=== PATIENT | female | born 1990 | race Hispanic/Latino ===

== ENCOUNTER → 2019-04-24 | Outpatient (CLI) | payer OTHER ==
[2019-04-24 08:09] LABS: BASOPHILS % (AUTO) 0.8 % (0.0-5.0); MEAN CORPUSCULAR HEMOGLOBIN 29.1 pg (27.0-33.0); MEAN CORPUSCULAR VOLUME 88.3 fL (79-99); PLATELET COUNT (AUTO) 347 K/uL (130-400); RED BLOOD CELL COUNT(AUTO) 4.19 MIL/uL (4.00-5.50); RED CELL DISTRIBUTION WIDTH 13.1 % (11.0-15.5); WHITE BLOOD COUNT (AUTO) 6.1 K/uL (4.8-10.8)
[2019-04-24 08:15] LABS: ALBUMIN 3.6 g/dL (3.5-5.0); BILIRUBIN,TOTAL 0.6 mg/dL (0.2-1.0); CREATININE 0.7 mg/dL (0.5-1.5); POTASSIUM 3.6 mmol/L (3.5-5.1); TOTAL PROTEIN, SERUM 7.2 g/dL (6.0-8.3)
== END | disposition home or self-care (01) ==
LOC: LAB 07:27
PROVIDERS: ATTEND Pediatrics Neurodevelopmental Disabilities
DX: E55.9 Vitamin D deficiency, unspecified (principal)
CPT/HCPCS: 36415; 80053; 82306; 82542; 85025

== ENCOUNTER 2020-03-19 07:39 | Emergency (ER) | payer OTHER ==
[2020-03-19 08:18] LABS: RAPID GROUP A STREP NEGATIVE (NEGATIVE)
[2020-03-19] MEDS ORDERED: AMOXICILLIN 500 MG CAPSULE PO ONE (08:18)
[2020-03-19] MEDS ORDERED: ACETAMINOPHEN EXTRA STRENGTH 500 MG TABLET ONE (08:18)
== END 2020-03-19 09:27 | disposition home or self-care (01) ==
LOC: EDH 07:39
DX: J02.9 Acute pharyngitis, unspecified (principal); R13.10 Dysphagia, unspecified; Z20.828 Contact with and (suspected) exposure to other viral communicable diseases; Z88.0 Allergy status to penicillin; Z98.890 Other specified postprocedural states
CPT/HCPCS: 87426; 87804 ×2; 87880; 99283; U0003

== ENCOUNTER → 2020-08-01 | Outpatient (CLI) | payer OTHER | END | disposition home or self-care (01) | LOC: RAH 14:28 | PROVIDERS: ATTEND Physician Assistant Medical | DX: N83.292 Other ovarian cyst, left side (principal) | CPT/HCPCS: 76856 ==

== ENCOUNTER → 2020-08-09 | Outpatient (CLI) | payer OTHER ==
[2020-08-09 07:37] LABS: BASOPHILS % (AUTO) 0.8 % (0.0-5.0); EOSINOPHILS % (AUTO) 1.5 % (0.0-8.0); HEMATOCRIT 38.4 % (36-48); LYMPHOCYTES % (AUTO) 47.2 % (21.0-51.0); MEAN CORPUSCULAR HEMOGLOBIN 29.5 pg (27.0-33.0); MEAN CORPUSCULAR HGB CONC 33.1 g/dL (32.0-36.0); MEAN CORPUSCULAR VOLUME 89.1 fL (79-99); MONOCYTES % (AUTO) 7.6 % (3.0-13.0); NEUTROPHILS % (AUTO) 42.6 % (40.0-77.0); PLATELET COUNT (AUTO) 359 K/uL (130-400); RED BLOOD CELL COUNT(AUTO) 4.31 MIL/uL (4.00-5.50); RED CELL DISTRIBUTION WIDTH 12.8 % (11.0-15.5); WHITE BLOOD COUNT (AUTO) 7.1 K/uL (4.8-10.8)
[2020-08-09 10:19] LABS: RAPID PLASMA REAGIN NONREACTIVE (NONREACTIVE)
== END | disposition home or self-care (01) ==
LOC: LAB 06:15
PROVIDERS: ATTEND Obstetrics & Gynecology
DX: Z11.3 Encounter for screening for infections with a predominantly sexual mode of transmission (principal)
CPT/HCPCS: 36415; 83001; 84146; 84443; 85025; 86592; 86701; 86762; 86804; 87340; 87390; 87522

== ENCOUNTER 2020-10-14 19:47 | Emergency (ER) | payer OTHER ==
[~2020-10-14] VITALS: Ht 162.6 cm; Wt 103.4 kg
[2020-10-14 20:18] VITALS: BP 141/87
[2020-10-14 20:28] LABS: APPEARANCE,URINE Cloudy (CLEAR); BILIRUBIN,URINE Negative (NEGATIVE); COLOR,URINE Yellow (YELLOW); GLUCOSE, URINE (UA) Negative (NEGATIVE); KETONES,URINE Negative (NEGATIVE); LEUKOCYTE ESTERASE ,URINE Small (NEGATIVE); NITRATE,URINE Negative (NEGATIVE); OCCULT BLOOD,URINE Negative (NEGATIVE); PH,URINE 6.5 (5.0-8.0); PROTEIN,URINE Negative (NEGATIVE); UROBILINOGEN,URINE 0.2 mg/dL (0.2-1.0)
[2020-10-14 20:29] LABS: HCG,QUAL RESULT NEGATIVE (NEGATIVE)
[2020-10-14] MEDS ORDERED: HYDROCODONE/ACETAMINOPHEN 10/325 MG TAB PO ONE (20:30)
[2020-10-14] MEDS ORDERED: CYCLOBENZAPRINE HCL 10 MG TABLET PO ONE (20:30)
[2020-10-14 20:51] LABS: BACTERIA,URINE Few /HPF (None Seen); MUCUS,URINE Few LPF (None Seen); RBC,URINE 0-1 /HPF (0-1); SQUAMOUS EPITHELIAL CELL,UR Few /HPF (0-2)
[2020-10-14] MEDS ORDERED: NAPR-1180 PO (22:09)
[2020-10-14] MEDS ORDERED: TRAM1TAB PO (22:09)
[2020-10-14] MEDS ORDERED: CYCL10 PO (22:09)
== END 2020-10-14 22:17 | disposition home or self-care (01) ==
LOC: EDH 19:47
DX: S16.1XXA Strain of muscle, fascia and tendon at neck level, initial encounter (principal); S09.90XA Unspecified injury of head, initial encounter; Z79.1 Long term (current) use of non-steroidal anti-inflammatories (NSAID); Z88.0 Allergy status to penicillin; V49.49XA Driver injured in collision with other motor vehicles in traffic accident, initial encounter; Y93.89 Activity, other specified; Y92.89 Other specified places as the place of occurrence of the external cause; Y99.8 Other external cause status
CPT/HCPCS: 70450; 72125; 81001; 81025

== ENCOUNTER 2020-10-27 14:59 | Emergency (ER) | payer OTHER ==
[~2020-10-27] VITALS: Ht 162.6 cm; Wt 99.8 kg
[~2020-10-27 14:59] MED LIST: CYCL10 PO; NAPR-1180 PO; TRAM1TAB PO
[2020-10-27 15:00] VITALS: BP 152/112
[2020-10-27] MEDS ORDERED: KETOROLAC 30MG VIAL (30MG/ML) IV ONE (16:00)
[2020-10-27] MEDS ORDERED: ONDANSETRON 4MG INJ IVP ONE (16:00)
[2020-10-27] MEDS ORDERED: MORPHINE 4 MG SYG IV ONE (16:00)
[2020-10-27] MEDS ORDERED: HYDROMORPHONE 0.5 MG SYG (0.5MG/0.5ML) IVP ONE (18:00)
[2020-10-27 18:27] VITALS: BP 134/95
[2020-10-27] MEDS ORDERED: IBUP-2070 PO (19:01)
[2020-10-27] MEDS ORDERED: CYCL5TAB PO (19:01)
[2020-10-27] MEDS ORDERED: ACET1TAB25 PO (19:01)
[2020-11-01] MEDS ORDERED: ACET1TAB25 PO (11:26)
== END 2020-10-27 19:30 | disposition home or self-care (01) ==
LOC: EDH 14:59
DX: S52.125A Nondisplaced fracture of head of left radius, initial encounter for closed fracture (principal); Z88.0 Allergy status to penicillin; Z79.899 Other long term (current) drug therapy; Z79.1 Long term (current) use of non-steroidal anti-inflammatories (NSAID); W01.0XXA Fall on same level from slipping, tripping and stumbling without subsequent striking against object, initial encounter; Y93.89 Activity, other specified; Y92.89 Other specified places as the place of occurrence of the external cause; Y99.9 Unspecified external cause status
CPT/HCPCS: 29105; 73060; 73070; 73090; 73100; 96374; 96375; 99284; J1885; J2270; J2405; J1170

== ENCOUNTER 2020-11-04 06:46 | Day surgery (SDC) | payer OTHER ==
[2020-10-31 16:14] LABS: BASOPHILS % (AUTO) 0.6 % (0.0-5.0); EOSINOPHILS % (AUTO) 1.6 % (0.0-8.0); MEAN CORPUSCULAR HEMOGLOBIN 28.4 pg (27.0-33.0); MEAN CORPUSCULAR HGB CONC 32.8 g/dL (32.0-36.0); MEAN CORPUSCULAR VOLUME 86.5 fL (79-99); NEUTROPHILS % (AUTO) 51.5 % (40.0-77.0); PLATELET COUNT (AUTO) 332 K/uL (130-400); RED BLOOD CELL COUNT(AUTO) 4.51 MIL/uL (4.00-5.50); RED CELL DISTRIBUTION WIDTH 13.2 % (11.0-15.5); WHITE BLOOD COUNT (AUTO) 7.7 K/uL (4.8-10.8)
[2020-10-31 16:24] LABS: CREATININE 0.6 mg/dL (0.5-1.5); POTASSIUM 3.5 mmol/L (3.5-5.1)
[2020-11-01 10:59] VITALS: BP 180/86
[2020-11-04] VITALS (14 sets, daily range): BP systolic 129–143; BP diastolic 72–84
[~2020-11-04] VITALS: Ht 162.6 cm; Wt 104.1 kg
[~2020-11-04 06:46] MED LIST changes: +ACET1TAB25 PO; -CYCL10 PO; -NAPR-1180 PO; -TRAM1TAB PO
[2020-11-04] MEDS ORDERED: CEFAZOLIN SODIUM 1 GM VIAL ONE (08:47)
[2020-11-04] MEDS ORDERED: LACTATED RINGERS 1000ML 1,000 ML IV ONE (08:51)
[2020-11-04] MEDS: CEFAZOLIN SODIUM 1 GM VIAL ONE ×2 (08:54→10:10)
[2020-11-04] MEDS ORDERED: LIDOCAINE PF 100MG/5ML (2%) SYRINGE 5ML ONE (09:52)
[2020-11-04] MEDS ORDERED: SUCCINYLCHOLINE CHLORIDE 20 MG/ML 10 ML VIAL ONE (09:52)
[2020-11-04] MEDS ORDERED: ONDANSETRON 4MG INJ ONE ×2 (09:53→14:00)
[2020-11-04] MEDS ORDERED: MIDAZOLAM HCL 1 MG/ML 2ML VIAL ONE (09:53)
[2020-11-04] MEDS ORDERED: NEOSTIGMINE 5MG/5ML SYR IV ONE (09:53)
[2020-11-04] MEDS ORDERED: PROPOFOL 10 MG/ML 20ML VIAL IV ONE (09:53)
[2020-11-04] MEDS ORDERED: GLYCOPYRROLATE 1 MG/5 ML SYRINGE ONE (09:53)
[2020-11-04] MEDS ORDERED: FENTANYL CITRATE PF 50 MCG/1 ML 2ML VIAL ONE ×4 (09:54→13:01)
[2020-11-04] MEDS ORDERED: MEPERIDINE-PF 25 MG/ML SYG ONE (12:24)
[2020-11-04] MEDS ORDERED: ROPIVACAINE 0.5% 5MG/ML 30ML IJ ONE (12:35)
[2020-11-04] MEDS ORDERED: HYDR-4060 PO (13:23)
[2020-11-04] MEDS ORDERED: CLIN300C3 PO (13:23)
== END 2020-11-04 15:15 | disposition home or self-care (01) ==
LOC: DAH 06:46
PROVIDERS: ATTEND Orthopaedic Surgery
DX: S52.122A Displaced fracture of head of left radius, initial encounter for closed fracture (principal); Z20.822 Contact with and (suspected) exposure to COVID-19; E66.01 Morbid (severe) obesity due to excess calories; Z88.0 Allergy status to penicillin; Z68.39 Body mass index [BMI] 39.0-39.9, adult; Z98.890 Other specified postprocedural states; Z98.891 History of uterine scar from previous surgery; V00.131A Fall from skateboard, initial encounter; Y93.89 Activity, other specified; Y92.89 Other specified places as the place of occurrence of the external cause
CPT/HCPCS: 36415; 73080; 76942; 80048; 84703; 85025; 87635; A4565; C9803; J0330; J0690; J2001; J2175; J2250; J2405; J2704; J2710; J2795; J3010; J3490; J7030; J7120